=== PATIENT | male | born 1990 | race Caucasian/White ===

== ENCOUNTER 2021-01-27 17:28 | Emergency (ER) | payer OTHER ==
[2021-01-27 20:54] LABS: HEMOGLOBIN 16.1 gm/dl (14.0-17.5); RED BLOOD COUNT 5.41 M/UL (4.20-5.50); WHITE BLOOD COUNT 19.9 K/UL (4.5-11.0)
[2021-01-27 21:21] LABS: BUN/CREATININE RATIO 9 (0-10)
== END 2021-01-27 21:40 | disposition home or self-care (01) ==
LOC: ER1 17:28
PROVIDERS: Physician Assistant
DX: S22.41XA Multiple fractures of ribs, right side, initial encounter for closed fracture (principal); F17.210 Nicotine dependence, cigarettes, uncomplicated; V49.40XA Driver injured in collision with unspecified motor vehicles in traffic accident, initial encounter; Y92.410 Unspecified street and highway as the place of occurrence of the external cause; F17.200 Nicotine dependence, unspecified, uncomplicated
CPT/HCPCS: 71045; 71260; 72131; 80053; 82550; 82553; 83690; 83874; 84484; 85025; 93005; 99284; J7030; Q9967